=== PATIENT | male | born 1975 | race Caucasian/White ===

== ENCOUNTER 2021-03-01 16:08 | Emergency (ER) | payer OTHER ==
[~2021-03-01] VITALS: Ht 177.8 cm; Wt 80.0 kg
[2021-03-01] MEDS ORDERED: AZITHROMYCIN500 MG PO (17:00)
[2021-03-01 17:18] VITALS: BP 19/69
== END 2021-03-01 17:19 | disposition home or self-care (01) | DRG 153 ==
LOC: ED 16:08
DX: H66.91 Otitis media, unspecified, right ear (principal)